=== PATIENT | female | born 1955 | race American Indian/Alaskan Native ===

== ENCOUNTER 2017-04-18 17:12 | Emergency (ER) | payer OTHER ==
[2017-04-18 17:45] VITALS: RESP 20; O2SAT 98
[2017-04-18] MEDS ORDERED: Lidocaine 5% Patch TD STA (18:26)
--- NOTE | 2017-04-18 18:26 | C.PDOC ---
History Of Present Illness Patient is a 61 year old female who presents to the ER with a complaint of left sided neck pain radiating to her left shoulder and arm for the past 2 weeks. Patient states the pain started as a "crick" in her neck that progressively got worse. Patient reports she has pain when attempting to elevate her arm and cannot bear weight on it. Patient notes she took 2 ibuprofen for the pain with no relief. Patient has a Hx of HTN; she has not been able to take her medication because she cannot afford it. Denies weakness or numbness of the extremities. Time Seen by Provider: 04/18/17 18:00 Chief Complaint (Nursing): Upper Extremity Problem/Injury History Per: Patient History/Exam Limitations: no limitations Onset/Duration Of Symptoms: Days (14) Current Symptoms Are (Timing): Still Present Exacerbating Factor(s): Strenuous Use Of Affected Area Recent travel outside of the [place]: No Past Medical History Reviewed: Historical Data, Nursing Documentation, Vital Signs Vital Signs: Last Vital Signs Temp 98.1 F 04/18/17 17:40 Pulse 84 04/18/17 17:40 Resp 20 04/18/17 17:40 BP 191/80 H 04/18/17 17:40 Pulse Ox 98 04/18/17 18:49 - Medical History PMH: HTN Surgical History: No Surg Hx Family History: States: Unknown Family Hx - Social History Hx Alcohol Use: Yes Hx Substance Use: No - Immunization History Hx Tetanus Toxoid Vaccination: No Hx Influenza Vaccination: No Hx Pneumococcal Vaccination: No Review Of Systems Musculoskeletal: Positive for: Neck Pain (Left), Shoulder Pain (Left), Arm Pain (Left) Neurological: Negative for: Weakness, Numbness Physical Exam - Physical Exam Appears: Non-toxic Skin: Normal Color, Warm, Dry Head: Atraumatic, Normacephalic Oral Mucosa: Moist Neck: Normal, Supple Respiratory: Other (Speaking in complete sentences, no respiratory distress) Extremity: Tenderness (Localized to left shoulder. ), Other (Muscle spasms to left shoulder. Limited adduction and extention of left arm due to pain.) Neurological/Psych: Oriented x3, Normal Speech, Normal Cognition ED Course And Treatment O2 Sat by Pulse Oximetry: 98 (Room air) Pulse Ox Interpretation: Normal Progress Note: Flexeril and toradol administered. Lidoderm applied. Patient will be given Rx for HTN medication and advised to follow up with the clinic. Disposition Counseled Patient/Family Regarding: Diagnosis, Need For Followup, Rx Given - Disposition [facility]Outside[facility] Disposition: HOME/ ROUTINE Disposition Time: 18:25 Condition: IMPROVED Prescriptions: amLODIPine [Norvasc] 10 mg PO DAILY #30 tab Cyclobenzaprine [Flexeril] 10 mg PO TID #15 tab Ibuprofen [Motrin] 600 mg PO Q6 #30 tab Lidocaine 5% [Lidoderm] 1 ea TD PRN PRN #10 patch PRN Reason: Pain, Moderate (4-7) Instructions: Hypertension (ED), Muscle Spasm (ED) - Clinical Impression Clinical Impression: Torticollis, Hypertension, uncontrolled - Scribe Statement The provider has reviewed the documentation as recorded by the Scribwenceslao Chino All medical record entries made by the Adrianaibe were at my direction and personally dictated by me. I have reviewed the chart and agree that the record accurately reflects my personal performance of the history, physical exam, medical decision making, and the department course for this patient. I have also personally directed, reviewed, and agree with the discharge instructions and disposition.
[2017-04-18] MEDS ORDERED: Lidocaine 5% Patch TD ONE (18:47)
[2017-04-18 19:19] VITALS: BP 177/63; PULSE 63; TEMP 98.8
== END 2017-04-18 19:20 | disposition home or self-care (01) ==
LOC: C.ER 17:12
DX: M43.6 Torticollis (principal); I10 Essential (primary) hypertension
CPT/HCPCS: 96372; 99284; J1885